=== PATIENT | male | born 1940 | race Caucasian/White ===

== ENCOUNTER 2020-11-22 22:28 | Emergency (ER) | payer OTHER ==
[2020-11-22 23:09] VITALS: BP 157/87; PULSE 95; RESP 17; TEMP 98.9
[2020-11-23 00:48] LABS: Appearance,Urine Clear (Clear); Bilirubin,Urine Negative (Negative); Blood,Urine Large (Negative); Color,Urine Light Yellow; Glucose,Urine (UA) 4+ (Negative); Ketones,Urine Negative (Negative); Leukocyte Esterase,Urine Trace (Negative); Nitrite,Urine Negative (Negative); PH, Urine 5.5 (5.0-8.0); Protein,Urine Negative (Negative); RBC,Urine 56 /hpf (0-5); Specific Gravity,Urine 1.016 (1.001-1.035); Squamous Epithelial Cell,Urine 2 /hpf (0-4); Urobilinogen,Urine <2.0 mg/dL (<2.0); WBC,Urine 12 /hpf (0-5)
[2020-11-23] MEDS ORDERED: SULFAMETH-TMP DS STARTER PACK 2 TAB BTL PO STA (01:06)
--- NOTE | 2020-11-23 01:06 | ED ---
Male Urogenital HPI - General Chief complaint: Urogenital Stated complaint: Blood in Urine Time Seen by Provider: 11/22/20 23:43 Source: patient Mode of arrival: ambulatory Limitations: no limitations - History of Present Illness Initial comments: 80 year-old male patient presents to the emergency department for evaluation of hematuria, urinary urgency, and dysuria. Patient states this started earlier today. He has had two episodes with presents of blood. He states that his last urination looked like normal urine. He denies any abdominal pain or flank pain. Denies any recent trauma or injuries. Denies use of blood thinning medications. Denies history of hematuria, prostate, or bladder surgeries. Yohan any fever or chills. Denies nausea or vomiting. States he otherwise feels fine. - Related Data Previous Rx's Medication Instructions Recorded Sulfamethoxazole/Trimethoprim 1 each PO BID #14 tablet 11/23/20 [Bactrim DS 800-160 mg] Allergies Allergy/AdvReac Type Severity Reaction Status Date / Time No Known Allergies Allergy Verified 11/22/20 23:09 Review of Systems ROS Statement: Those systems with pertinent positive or pertinent negative responses have been documented in the HPI. ROS Other: All systems not noted in ROS Statement are negative. Past Medical History Past Medical History: Diabetes Mellitus, Hyperlipidemia, Hypertension History of Any Multi-Drug Resistant Organisms: None Reported Past Surgical History: Hernia Repair Past Psychological History: No Psychological Hx Reported Smoking Status: Former smoker Past Alcohol Use History: Daily Past Drug Use History: None Reported General Exam Limitations: no limitations General appearance: alert, in no apparent distress, other (This is a well- developed, well-nourished elderly male patient in no acute distress. Vital signs upon presentation are temperature 98.9F, pulse 95, respirations 17, blood pressure 157/87, pulse ox 97% on room air.) Respiratory exam: Present: normal lung sounds bilaterally. Absent: respiratory distress, wheezes, rales, rhonchi, stridor Cardiovascular Exam: Present: regular rate, normal rhythm, normal heart sounds. Absent: systolic murmur, diastolic murmur, rubs, gallop, clicks GI/Abdominal exam: Present: soft, normal bowel sounds. Absent: distended, ten derness, guarding, rebound, rigid Back exam: Present: normal inspection. Absent: CVA tenderness (R), CVA tenderness (L) Neurological exam: Present: alert, oriented X3, CN II-XII intact Psychiatric exam: Present: normal affect, normal mood Skin exam: Present: warm, dry, intact, normal color. Absent: rash Course Vital Signs 11/22/20 23:02 Temperature 98.9 F Pulse Rate 95 Respiratory 17 Rate Blood Pressure 157/87 O2 Sat by Pulse 97 Oximetry Medical Decision Making - Medical Decision Making 80-year-old male patient presents for evaluation of blood in his urine. Physical examination did reveal no CVA tenderness. No abdominal tenderness. He did report urinary urgency and dysuria as well. He is afebrile, vital signs. Urinalysis did show presence of blood, small amount of white blood cells. We will send for culture, treat with antibiotics pending culture results. He will be discharged follow up with urology for further evaluation as soon as possible. Return parameters were discussed in detail. He verbalizes understanding and agrees this plan. Case discussed with my attending Dr. Cochran. - Lab Data Lab Results 11/23/20 11/23/20 Range/Units 00:07 00:29 Urine Color Light Yellow Urine Appearance Clear (Clear) Urine pH 5.5 (5.0-8.0) Ur Specific [place] 1.016 (1.001-1.035) Urine Protein Negative (Negative) Urine Glucose (UA) 4+ H (Negative) Urine Ketones Negative (Negative) Urine Blood Large H (Negative) Urine Nitrite Negative (Negative) Urine Bilirubin Negative (Negative) Urine Urobilinogen <2.0 (<2.0) mg/dL Ur Leukocyte Esterase Trace H (Negative) Urine RBC 56 H (0-5) /hpf Urine WBC 12 H (0-5) /hpf Ur Squamous Epith Cells 2 (0-4) /hpf Coronavirus (PCR) Not Detected (Not Detectd) Disposition Clinical Impression: Hematuria, Urinary urgency, Urinary frequency Disposition: HOME SELF-CARE Condition: Good Instructions (If sedation given, give patient instructions): Urinary Tract Infection in Men (ED), Hematuria (ED) Additional Instructions: Take antibiotic as directed. Follow-up with urologist for further evaluation as soon as possible. Return to the emergency department for any new, worsening, or concerning symptoms. Prescriptions: Sulfamethoxazole/Trimethoprim [Bactrim DS 800-160 mg] 1 each PO BID #14 tablet Is patient prescribed a controlled substance at d/c from ED?: No Referrals: Khadar Gomez MD [STAFF PHYSICIAN] - 1-2 days Time of Disposition: 01:06
== END 2020-11-23 01:42 | disposition home or self-care (01) ==
LOC: EC 22:28
DX: R31.9 Hematuria, unspecified (principal); R39.15 Urgency of urination; R35.0 Frequency of micturition; R30.0 Dysuria; E11.9 Type 2 diabetes mellitus without complications; I10 Essential (primary) hypertension; Z87.891 Personal history of nicotine dependence; Z20.822 Contact with and (suspected) exposure to COVID-19
CPT/HCPCS: 81001; 87086; 87635; 99284